=== PATIENT | female | born 1980 | race Caucasian/White ===

== ENCOUNTER 2016-12-24 13:46 | Emergency (ER) | payer MEDICAID ==
[~2016-12-24] VITALS: Ht 162.6 cm; Wt 63.0 kg
[2016-12-24 13:48] VITALS: Ht 162.6 cm; Wt 63.0 kg
[2016-12-24] MEDS ORDERED: IBUPROFEN 600 MG TAB PO ONE (14:30)
--- NOTE | 2016-12-24 14:45 | RADRPT ---
PROCEDURE: XR Toes. CLINICAL INDICATION: TRAUMA TECHNIQUE: AP, oblique and lateral views of third toe were performed. COMPARISON: None FINDINGS: There is normal mineralization and alignment. No fracture or osseous lesion is identified. The soft tissues are unremarkable. IMPRESSION: Unremarkable radiographs of the third toe. RPTAT: QQ Shantanu Bailey Physician Date Time Electronically viewed and signed by Shantanu Bailey Physician on 12/24/2016 14:45 /
[2016-12-24] MEDS ORDERED: IBUP-1542 PO (14:59)
--- NOTE | 2016-12-24 15:05 | ERD ---
ER Documentation Chief Complaint Date/Time DATE: 12/24/16 TIME: 15:02 Chief Complaint RT MIDDLE TOE INJURY , HIT ON SHOWER DOOR LAST NIGHT HPI This 36-year-old female complains of right third toe pain and bruising after taking a shower door last night. She has no restricted range of motion weakness or bleeding or redness. She denies any foot or ankle tenderness. ROS All systems reviewed and are negative except as per history of present illness. Medications Home Meds Active Scripts Ibuprofen* (Motrin*) 600 Mg Tab, 600 MG PO Q6, #15 TAB Prov:GUANACO REYES MD 12/24/16 Allergies Allergies: Coded Allergies: No Known Allergy (Unverified , 02/15/13) PMhx/Soc Medical and Surgical Hx: pt denies Medical Hx, pt denies Surgical Hx History of Surgery: Yes (Appendectomy) Anesthesia Reaction: No Hx Neurological Disorder: No Hx Respiratory Disorders: No Hx Cardiac Disorders: No Hx Psychiatric Problems: No Hx Miscellaneous Medical Probl: No Hx Alcohol Use: No Hx Substance Use: No Hx Tobacco Use: No Physical Exam Vitals Vital Signs Date Time Temp Pulse Resp B/P Pulse Ox O2 Delivery O2 Flow Rate FiO2 12/24/16 13:48 97.8 76 18 117/56 98 Physical Exam Const: [], Not ill-appearing. Head: Atraumatic Eyes: Normal Conjunctiva ENT: Normal External Ears, Nose and Mouth. Neck: Full range of motion..~ No meningismus. Resp: Clear to auscultation bilaterally Cardio: Regular rate and rhythm, no murmurs Abd: Soft, non tender, non distended. Normal bowel sounds Skin: No petechiae or rashes Back: No midline or flank tenderness Ext: No cyanosis, or edema. Is some bruising on the right third toe diffusely without deformities, erythema or bleeding. cap Refill is less than 2 seconds. Neur: Awake and alert Psych: Normal Mood and Affect Results 24 hrs Current Medications Medications (Trade) Dose Ordered Sig/Enedina Route PRN Reason Start Time Stop Time Status Last Admin Dose Admin Ibuprofen (Motrin) 600 mg ONCE ONCE PO 12/24/16 14:30 12/24/16 14:31 DC 12/24/16 14:11 Procedures/MDM X-ray right third toe 2V Interpreted by me: Bones: [No fracture] Joints: [No dislocation] Foreign body: [None] patient-normal right third toe x-ray Patient was given Motrin for pain. Patient has signs and symptoms of right third toe contusion without evidence of fracture, dislocation, ischemia or infection. She will treated with ibuprofen, was placed in the right lower extremity postop shoe. Patient is neurovascular intact after the shoe. Discharged home with primary care follow-up and return precautions. Departure Diagnosis: Primary Impression: Injury of toe Encounter type: initial encounter Laterality: left Qualified Code: S99.922A - Injury of toe on left foot, initial encounter Condition: Stable Patient Instructions: Sprain Toe Additional Instructions: X-ray read as normal. Recheck for new or worsening symptoms-redness, fevers, or with primary care doctor. GUANACO REYES MD Dec 24, 2016 15:05
[2016-12-24 16:00] VITALS: BP 99/60; PULSE 79; RESP 16
== END 2016-12-24 15:18 | disposition home or self-care (01) ==
LOC: FTE 13:46
DX: S90.121A Contusion of right lesser toe(s) without damage to nail, initial encounter (principal); W22.09XA Striking against other stationary object, initial encounter; Y92.9 Unspecified place or not applicable
CPT/HCPCS: 73660; Z7502; Z7610

== ENCOUNTER 2018-04-22 21:09 | Emergency (ER) | payer MEDICAID ==
[~2018-04-22] VITALS: Wt 66.6 kg
[~2018-04-22 21:09] MED LIST: IBUP-1542 PO
[2018-04-22 21:30] VITALS: BP 121/70; PULSE 72; RESP 22
[2018-04-23] MEDS ORDERED: PRED20TA PO (00:06)
--- NOTE | 2018-04-23 00:08 | ERD ---
ER Documentation Chief Complaint Chief Complaint rash to neck; ant trunk start Sun; took aspirin Fri-Sun. 'burn' sensation HPI Is a 37-year-old female who presents with a rash to her neck and back and abdomen that is itchy and feels like a burning. She tried putting Benadryl cream on it but she states it did not help. No new foods soaps or irritants she can think of but she did take aspirin for a few days because she was having sore throat and that the only thing that she can think of that may have caused this. No difficulty breathing. No lip or tongue swelling. No fevers. ROS All systems reviewed and are negative except as per history of present illness. Medications Home Meds Active Scripts Prednisone* (Prednisone*) 20 Mg Tab, 60 MG PO DAILY for 5 Days, TAB Prov:SANTANA EUBANKS PA-C 04/23/18 Ibuprofen* (Motrin*) 600 Mg Tab, 600 MG PO Q6, #15 TAB Prov:GUANACO REYES MD 12/24/16 Allergies Allergies: Coded Allergies: No Known Allergy (Unverified , 02/15/13) PMhx/Soc History of Surgery: Yes (Appendectomy) Anesthesia Reaction: No Hx Neurological Disorder: No Hx Respiratory Disorders: No Hx Cardiac Disorders: No Hx Psychiatric Problems: No Hx Miscellaneous Medical Probl: No Hx Alcohol Use: No Hx Substance Use: No Hx Tobacco Use: No FmHx Family History: No diabetes Physical Exam Vitals Vital Signs Date Temp Pulse Resp B/P (MAP) Pulse Ox O2 O2 Flow FiO2 Time Delivery Rate 04/22/18 98.3 72 22 121/70 99 21:30 (87) Physical Exam Const: No acute distress Head: Atraumatic Eyes: Normal Conjunctiva ENT: Normal External Ears, Nose and Mouth. Neck: Full range of motion. No meningismus. Resp: Clear to auscultation bilaterally Cardio: Regular rate and rhythm, no murmurs Skin: macular papular hive like rash on chest wall and abdomen, no lip or tong ue swelling Procedures/MDM Patient presents with a rash. There is no evidence of life-threatening rash. She is nondiabetic. She is given prescription for a short course of prednisone she can take Benadryl for itchiness. Patient counseled regarding my diagnostic impression and care plan. Prior to discharge all questions answered. Pt agrees with treatment plan and understands strict return precautions. Pt is instructed to follow up with primary care provider within 24-48 hours. Precautionary instructions provided including instructions to return to the ER if not improving or for any worsening or changing symptoms or concerns. Departure Diagnosis: Primary Impression: Rash Condition: Stable Patient Instructions: Self-Care for Skin Rashes Additional Instructions: Call your primary care doctor TOMORROW for an appointment during the next 1-2 days.See the doctor sooner or return here if your condition worsens before your appointment time. SANTANA EUBANKS PA-C Apr 23, 2018 00:08
== END 2018-04-23 00:37 | disposition home or self-care (01) ==
LOC: FTE 21:09
DX: R21 Rash and other nonspecific skin eruption (principal)
CPT/HCPCS: 99283